=== PATIENT | female | born 1955 | race African-American/Black ===

== ENCOUNTER 2018-12-06 19:44 | Emergency (ER) | payer MEDICAID ==
[~2018-12-06] VITALS: Ht 160 cm; Wt 52.5 kg
[2018-12-06] MEDS ORDERED: DIPHENHYDRAMINE 25MG CAPSULE PO ONE (22:45)
[2018-12-06] MEDS ORDERED: PREDNISONE 20MG TABLET PO ONE (22:45)
[2018-12-06] MEDS ORDERED: FAMOTIDINE 20MG TABLET PO ONE (22:45)
[2018-12-06 23:26] VITALS: BP 158/80
== END 2018-12-06 23:29 | disposition home or self-care (01) ==
LOC: ER 19:44
DX: T78.40XA Allergy, unspecified, initial encounter (principal); M41.9 Scoliosis, unspecified; J45.909 Unspecified asthma, uncomplicated; X58.XXXA Exposure to other specified factors, initial encounter
CPT/HCPCS: 99284; J7512; Q0163

== ENCOUNTER 2018-12-13 02:45 | Emergency (ER) | payer MEDICAID ==
[~2018-12-13] VITALS: Ht 157.5 cm; Wt 48.0 kg
[2018-12-13] MEDS ORDERED: IBUPROFEN 600MG TABLET PO STA (04:38)
[2018-12-13 05:08] VITALS: BP 160/87
[2018-12-13 05:32] LABS: CLARITY URINE CLOUDY (CLEAR); COLOR URINE YELLOW (YELLOW); KETONES URINE NEGATIVE (NEGATIVE); LEUKOCYTE ESTERASE URINE NEGATIVE (NEGATIVE); NITRITE URINE NEGATIVE (NEGATIVE); OCCULT BLOOD URINE NEGATIVE (NEGATIVE); PROTEIN URINE NEGATIVE (NEGATIVE); SPECIFIC GRAVITY URINE 1.007 (1.005-1.030); UROBILINOGEN URINE 0.2 E.U./dL (0.2-1.0)
== END 2018-12-13 05:23 | disposition home or self-care (01) ==
LOC: ER 02:45
DX: B02.9 Zoster without complications (principal)
CPT/HCPCS: 81003; 99283; Z7610

== ENCOUNTER 2018-12-30 23:50 | Inpatient (IN) | payer MEDICAID ==
[~2018-12-30] VITALS: Ht 165.1 cm; Wt 48.5 kg
[2018-12-31] MEDS ORDERED: SODIUM CHLORIDE 0.9% 1,000 ML IV ONE (00:41)
[2018-12-31] MEDS ORDERED: MORPHINE SULFATE 4 MG/ML CPJ (NOT FOR IM USE) IV STA (00:41)
[2018-12-31 01:00] LABS: BASOPHILS % 0.7 % (0.0-2.0); EOSINOPHILS % 2.4 % (0.0-5.0); HEMATOCRIT. 33.3 % (36.0-48.0); HEMOGLOBIN. 10.6 g/dL (12.0-16.0); LYMPHOCYTES % 35.8 % (20.0-50.0); MEAN CORPUSCULAR HEMOGLOBIN 26.1 pg (28.0-32.0); MEAN CORPUSCULAR VOLUME 81.8 fL (81.0-99.0); MEAN PLATELET VOLUME 8.9 fl (7.4-10.4); NEUTROPHILS % 55.1 % (40.0-76.0); PLATELET 197 x1000/uL (130-400); RED BLOOD CELL COUNT 4.07 mill/uL (4.2-5.4); RED CELL DISTRIBUTION WIDTH 14.5 % (11.6-14.6)
[2018-12-31 01:01] LABS: CHLORIDE 106 mEq/L (98-107); PROTHROMBIN TIME 10.3 sec (9.1-11.1)
[2018-12-31 04:04] LABS: CLARITY URINE CLEAR (CLEAR); COLOR URINE YELLOW (YELLOW); KETONES URINE NEGATIVE (NEGATIVE); LEUKOCYTE ESTERASE URINE NEGATIVE (NEGATIVE); NITRITE URINE NEGATIVE (NEGATIVE); OCCULT BLOOD URINE 1+ (NEGATIVE); PH URINE 6.5 (4.5-8.0); PROTEIN URINE NEGATIVE (NEGATIVE); SPECIFIC GRAVITY URINE 1.015 (1.005-1.030); UROBILINOGEN URINE 0.2 E.U./dL (0.2-1.0)
[2018-12-31] MEDS ORDERED: ONDANSETRON HCL 4MG/2ML INJ IV ONE (04:15)
[2018-12-31] MEDS ORDERED: METOCLOPRAMIDE HCL 10MG/2ML VIAL IV ONE (05:15)
[2018-12-31 09:00] VITALS: BP 141/73
[2018-12-31 10:00] VITALS: BP 141/73
[2018-12-31 12:00] VITALS: BP 123/72
[2018-12-31] MEDS: DEXT 5%/0.45% NACL 1000ML 1,000 ML IV SCH (12:07)
[2018-12-31] MEDS: MORPHINE SULFATE 4 MG/ML CPJ (NOT FOR IM USE) IV PRN ×2 (12:08→18:04)
[2018-12-31] MEDS: PANTOPRAZOLE SODIUM 40 MG/VIAL IV SCH (12:08)
[2018-12-31] MEDS ORDERED: PANTOPRAZOLE SODIUM 40 MG/VIAL IV SCH (15:00)
[2018-12-31 16:00] VITALS: BP 127/72
[2018-12-31 20:00] VITALS: BP 147/87
[2018-12-31] MEDS: ONDANSETRON HCL 4MG/2ML INJ IV PRN (20:48)
[2019-01-01] VITALS: BP 158/70
[2019-01-01] MEDS: ONDANSETRON HCL 4MG/2ML INJ IV PRN ×2 (01:12→09:45)
[2019-01-01] MEDS: MORPHINE SULFATE 4 MG/ML CPJ (NOT FOR IM USE) IV PRN ×2 (01:13→08:34)
[2019-01-01 04:00] VITALS: BP 132/87
[2019-01-01 08:00] VITALS: BP 144/79
[2019-01-01] MEDS: PANTOPRAZOLE SODIUM 40 MG/VIAL IV SCH (08:34)
[2019-01-01 12:00] VITALS: BP 142/75
[2019-01-01] MEDS: DEXT 5%/0.45% NACL 1000ML 1,000 ML IV SCH (13:24)
[2019-01-01] MEDS: ENOXAPARIN 40MG/0.4ML SYR SUBCUT SCH (13:24)
[2019-01-01] MEDS ORDERED: BISACODYL 10MG SUPP PR NR (14:30)
[2019-01-01] MEDS ORDERED: METOCLOPRAMIDE HCL 10MG/2ML VIAL IV PRN (14:45)
[2019-01-01 16:00] VITALS: BP 174/76
[2019-01-01] MEDS ORDERED: INFLUENZA VIRUS VACCINE(AFLURIA) 0.5ML SYR IM ONE (16:15)
[2019-01-01] MEDS ORDERED: PNEUMOCOCCAL 23-VAL P-SAC VAC 0.5 ML IM ONE (16:15)
[2019-01-01] MEDS: AMLODIPINE 5MG TABLET PO SCH ×2 (16:34→22:09)
[2019-01-01 20:00] VITALS: BP 160/86
[2019-01-01] MEDS ORDERED: KETOROLAC 30MG/ML VIAL IV PRN (22:00)
[2019-01-01] MEDS: KETOROLAC 15MG/ML VIAL IV PRN (22:24)
[2019-01-02] VITALS: BP 146/77
[2019-01-02] MEDS: HYDROCODONE/ACETAMINOPHEN 5/325MG TABLET PO PRN ×4 (01:50→21:28)
[2019-01-02] MEDS ORDERED: DIPH25CA83 PO (01:59)
[2019-01-02] MEDS ORDERED: ATOR80TA MT (01:59)
[2019-01-02] MEDS ORDERED: GABA300C MT (01:59)
[2019-01-02] MEDS: DEXT 5%/0.45% NACL 1000ML 1,000 ML IV SCH ×2 (02:34→15:01)
[2019-01-02 04:00] VITALS: BP 107/63
[2019-01-02 08:00] VITALS: BP 114/69
[2019-01-02] MEDS: AMLODIPINE 5MG TABLET PO SCH ×2 (09:00→21:32)
[2019-01-02] MEDS: PANTOPRAZOLE SODIUM 40 MG/VIAL IV SCH (09:01)
[2019-01-02] MEDS: ENOXAPARIN 40MG/0.4ML SYR SUBCUT SCH (09:01)
[2019-01-02 11:21] VITALS: BP 123/69
[2019-01-02] MEDS: KETOROLAC 15MG/ML VIAL IV PRN (11:50)
[2019-01-02 20:00] VITALS: BP 157/91
[2019-01-02] MEDS: ONDANSETRON HCL 4MG/2ML INJ IV PRN (21:24)
[2019-01-02 23:46] VITALS: BP 127/71
[2019-01-03 04:00] VITALS: BP 120/67
[2019-01-03] MEDS: DEXT 5%/0.45% NACL 1000ML 1,000 ML IV SCH (05:53)
[2019-01-03 08:00] VITALS: BP 122/75
[2019-01-03] MEDS: AMLODIPINE 5MG TABLET PO SCH (09:00)
[2019-01-03] MEDS: PANTOPRAZOLE SODIUM 40 MG/VIAL IV SCH (09:17)
[2019-01-03] MEDS: ENOXAPARIN 40MG/0.4ML SYR SUBCUT SCH (09:17)
[2019-01-03] MEDS: HYDROCODONE/ACETAMINOPHEN 5/325MG TABLET PO PRN ×2 (09:24→14:47)
[2019-01-03 12:00] VITALS: BP 119/65
[2019-01-03 15:45] VITALS: BP 119/65
[2019-01-03 16:00] VITALS: BP 128/74
[2019-01-03] MEDS ORDERED: LACTULOSE 20G/30ML UDC PO SCH (22:00)
== END 2019-01-03 17:50 | disposition home or self-care (01) | DRG 247 ==
LOC: ER 23:50 → 6EST 12-31 04:56 → EDBEDREQTM 12-31 04:58 → EDBEDREQ 12-31 04:58 → ENRESERV 12-31 07:30
PROVIDERS: ADMIT Internal Medicine; ATTEND Internal Medicine
DX: K56.41 Fecal impaction (principal); M41.84 Other forms of scoliosis, thoracic region; D50.9 Iron deficiency anemia, unspecified; I10 Essential (primary) hypertension; J45.909 Unspecified asthma, uncomplicated
CPT/HCPCS: 36415; 74018; 74176; 82040; 90686; 90732; 96361; 96374; 96375; 99285; C1893; C9113; J1650; J1885; J2270; J2405; J2765; J7030

== ENCOUNTER 2019-01-07 04:34 | Emergency (ER) | payer MEDICAID ==
[~2019-01-07] VITALS: Ht 165.1 cm; Wt 53.0 kg
[~2019-01-07 04:34] MED LIST: ATOR80TA MT; DIPH25CA83 PO; GABA300C MT
[2019-01-07] MEDS ORDERED: SODIUM CHLORIDE 0.9% 1,000 ML IV ONE (05:06)
[2019-01-07] MEDS ORDERED: ONDANSETRON HCL 4MG/2ML INJ IV STA (05:06)
[2019-01-07] MEDS ORDERED: KETOROLAC 30MG/ML VIAL IV STA (05:19)
[2019-01-07 05:28] LABS: BASOPHILS % 0.2 % (0.0-2.0); EOSINOPHILS % 1.2 % (0.0-5.0); HEMOGLOBIN. 12.9 g/dL (12.0-16.0); LYMPHOCYTES % 14.5 % (20.0-50.0); MEAN CORPUSCULAR HEMOGLOBIN 26.6 pg (28.0-32.0); MEAN CORPUSCULAR VOLUME 82.1 fL (81.0-99.0); MONOCYTES % 5.6 % (2.0-8.0); NEUTROPHILS % 78.5 % (40.0-76.0); PLATELET 229 x1000/uL (130-400); RED BLOOD CELL COUNT 4.87 mill/uL (4.2-5.4)
[2019-01-07 05:38] LABS: CHLORIDE 105 mEq/L (98-107)
[2019-01-07] MEDS ORDERED: DICYCLOMINE HCL 10MG/ML 2ML AMP IM ONE (06:15)
[2019-01-07] MEDS ORDERED: MORPHINE SULFATE 4 MG/ML CPJ (NOT FOR IM USE) IV ONE (06:15)
[2019-01-07 07:16] VITALS: BP 137/71
== END 2019-01-07 08:25 | disposition home or self-care (01) ==
LOC: ER 05:24
DX: R10.9 Unspecified abdominal pain (principal); I10 Essential (primary) hypertension; J45.909 Unspecified asthma, uncomplicated; Z98.890 Other specified postprocedural states
CPT/HCPCS: 36415; 80053; 83690; 85025; 96361; 96372; 96374; 96375; 99283; J0500; J1885; J2270; J2405; J7030; Z7610

== ENCOUNTER 2020-04-02 20:01 | Emergency (ER) | payer MEDICAID ==
[~2020-04-02] VITALS: Ht 160 cm; Wt 61.0 kg
[2020-04-02] MEDS ORDERED: HYDROCODONE/ACETAMINOPHEN 5/325MG TABLET PO ONE (22:15)
[2020-04-02 22:50] VITALS: BP 143/65
== END 2020-04-03 04:55 | disposition home or self-care (01) ==
LOC: ER 20:01
DX: M25.552 Pain in left hip (principal); M54.30 Sciatica, unspecified side; W01.0XXA Fall on same level from slipping, tripping and stumbling without subsequent striking against object, initial encounter; Y93.9 Activity, unspecified; Y92.9 Unspecified place or not applicable
CPT/HCPCS: 73502; 73562; 73700; 99284

== ENCOUNTER 2021-06-26 09:31 | Emergency (ER) | payer MEDICARE, MEDICAID ==
[~2021-06-26] VITALS: Ht 160 cm; Wt 99.0 kg
[2021-06-26] MEDS ORDERED: VANCOMYCIN 750 MG PREMIX 150 ML IV STA (10:14)
[2021-06-26] MEDS ORDERED: MORPHINE SULFATE 4 MG/ML CPJ (NOT FOR IM USE) IV ONE (10:15)
[2021-06-26 10:34] LABS: BASOPHILS % 0.6 % (0.0-2.0); EOSINOPHILS % 6.1 % (0.0-5.0); HEMATOCRIT. 29.9 % (36.0-48.0); LYMPHOCYTES % 30.6 % (20.0-50.0); MEAN CORPUSCULAR HEMOGLOBIN 27.2 pg (28.0-32.0); MEAN CORPUSCULAR VOLUME 81.1 fL (81.0-99.0); MEAN PLATELET VOLUME 9.2 fl (7.4-10.4); MONOCYTES % 8.4 % (2.0-8.0); NEUTROPHILS % 54.3 % (40.0-76.0); PLATELET 204 x1000/uL (130-400); RED BLOOD CELL COUNT 3.69 mill/uL (4.2-5.4); RED CELL DISTRIBUTION WIDTH 15.2 % (11.6-14.6)
[2021-06-26 10:47] LABS: CHLORIDE 107 mEq/L (98-107)
[2021-06-26] MEDS ORDERED: FENTANYL CITRATE/PF 50MCG/ML 2ML VIAL IV ONE ×2 (11:00→14:00)
[2021-06-26] MEDS ORDERED: LEVOFLOXACIN 500MG PREMIX 100 ML IV ONE (13:45)
[2021-06-26 14:03] VITALS: BP 130/70
== END 2021-06-26 14:30 | disposition short-term general hospital (02) ==
LOC: ER 09:31
DX: R60.0 Localized edema (principal); I10 Essential (primary) hypertension; J45.909 Unspecified asthma, uncomplicated; Z98.890 Other specified postprocedural states
CPT/HCPCS: 36415; 71045; 72170; 72192; 73600; 80053; 83880; 84484; 85025; 93005; 96374; 96375; 96376; 99285; J2270; J3010; J3370